=== PATIENT | female | born 1975 | race Caucasian/White ===

== ENCOUNTER 2019-08-06 12:00 | Outpatient (CLI) | payer OTHER, SELFPAY | END 2019-08-06 12:01 | disposition home or self-care (01) | LOC: SLEEP 08-08 09:44 | PROVIDERS: Family Provider Family Medicine; Visit Provider Family Medicine | DX: G47.33 Obstructive sleep apnea (adult) (pediatric) (principal) | CPT/HCPCS: G0399 ==

== ENCOUNTER 2020-04-08 11:50 | Outpatient (CLI) | payer OTHER, SELFPAY ==
--- NOTE | 2020-04-08 11:54 | MM_ITS ---
WS: [id number] BILATERAL DIGITAL SCREENING MAMMOGRAPHY WITH CAD CLINICAL INFORMATION: SCREENING HISTORY: Screening mammogram. No current complaints. COMPARISON: TECHNIQUE: Bilateral CC and MLO views. FINDINGS: The breasts are composed of heterogeneous fibroglandular density tissue, which can limit the detectio n of small underlying mass lesions. No suspicious mass, asymmetry, calcifications, or architectural d istortion. No evidence of malignancy. MM/[place] [id number] IMPRESSION: BI-RADS: 1-Negative FOLLOW UP: 1 Year Follow-up Recommend return to annual screening mammography.
== END 2020-04-08 11:51 | disposition home or self-care (01) ==
LOC: RADSHAW 11:52
PROVIDERS: PCP Family Medicine; Visit Provider Family Medicine
DX: Z12.31 Encounter for screening mammogram for malignant neoplasm of breast (principal)
CPT/HCPCS: 77067

== ENCOUNTER 2021-05-17 13:09 | Outpatient (CLI) | payer OTHER, SELFPAY ==
--- NOTE | 2021-05-17 | XR_ITS ---
WS: [id number] XR foot LT min 3V* [id number] REASON FOR EXAM: Left foot pain FINDINGS: No fracture or focal bone lesion. Mild narrowing with subchondral sclerosis and small marginal osteophytes in the PIP and predominantly DIP joints of the toes. No significant hallux valgus deformity arthropathy. Normal sesamoid bones. Joint spaces in the hindfoot and midfoot are well preserved. Moderate anterior plantar and small posterior Achilles enthesophytes. XR/XR foot LT min 3V* [id number] IMPRESSION: Minimal osteoarthritis of the left foot.
== END 2021-05-17 13:10 | disposition home or self-care (01) ==
PROVIDERS: PCP Family Medicine; Visit Provider Family Medicine
DX: M79.672 Pain in left foot (principal)
CPT/HCPCS: 73630

== ENCOUNTER → 2022-06-29 10:24 | Outpatient (BNVA) | payer OTHER, SELFPAY | PROVIDERS: PCP Family Medicine; Visit Provider Nurse Practitioner | DX: J02.9 Acute pharyngitis, unspecified (principal) | CPT/HCPCS: 87071; 87880 ==

== ENCOUNTER → 2022-07-11 09:05 | Outpatient (BNVA) | payer OTHER, SELFPAY | PROVIDERS: PCP Family Medicine; Visit Provider Family Medicine | DX: K76.0 Fatty (change of) liver, not elsewhere classified (principal); Z13.6 Encounter for screening for cardiovascular disorders | CPT/HCPCS: 80053; 80061; 83036; 85025 ==

== ENCOUNTER → 2022-12-26 09:59 | Outpatient (BNVA) | payer OTHER, SELFPAY | PROVIDERS: PCP Family Medicine; Visit Provider Registered Nurse Neonatal Intensive Care | DX: R05.9 Cough, unspecified (principal) | CPT/HCPCS: 87400; 87426 ==

== ENCOUNTER 2023-01-19 09:21 | Outpatient (CLI) | payer OTHER, SELFPAY ==
--- NOTE | 2023-01-19 09:26 | MM_ITS ---
WS: [id number] SCREENING DIGITAL BREAST TOMOSYNTHESIS MAMMOGRAM WITH CAD HISTORY: SCREENING COMPARISON: 04/08/2020 and 12/25/2018 Bilateral CC and MLO with tomosynthesis and synthetic mammography submitted. Computer aided detection analyzed. Breast composition: There are scattered areas of fibroglandular density. There is a new slightly lobu lated mass in the anterior LEFT breast, just medial and inferior to the nipple line. Probably near th e 5:00 axis. RIGHT breast is negative. IMPRESSION: MM/[place] [id number] BI-RADS: 0-Incomplete: Need additional imaging evaluation FOLLOW UP: Need Additional Imaging LEFT breast: Spot compression views (CC and MLO). True ML. Ultrasound to follow if abnormality persists.
== END 2023-01-19 09:22 | disposition home or self-care (01) ==
LOC: RAD 09:21
PROVIDERS: PCP Family Medicine; Visit Provider Family Medicine
DX: Z12.31 Encounter for screening mammogram for malignant neoplasm of breast (principal)
CPT/HCPCS: 77063; 77067

== ENCOUNTER 2023-02-26 10:40 | Outpatient (CLI) | payer OTHER, SELFPAY ==
--- NOTE | 2023-02-26 11:02 | MM_ITS ---
WS: [id number] ADDITIONAL VIEWS LEFT MAMMOGRAM with tomosynthesis. LEFT BREAST ULTRASOUND HISTORY: abnormal screening COMPARISON: 01/19/2023, 04/08/2020 LEFT MAMMOGRAM: Spot compression views and true ML with tomosynthesis and sympathetic mammography. Slightly lobulated 7 x 8 mm nodule persists in the anterior LEFT breast near 12:00. No additional abn ormality. LEFT BREAST ULTRASOUND 2-D and color Doppler imaging submitted. Hypoechoic mass is ovoid in shape at 6:00, 1 to 2 cm from the nipple. Mass measures 7 x 12 x 5 mm. Th ere is a fatty hilum. This appears to be a lymph node by ultrasound evaluation. IMPRESSION: MM/[place] [id number] BI-RADS: 3-Probably Benign FOLLOW UP: 6 Month Follow-up New mass 6:00 LEFT breast by ultrasound appears to be a lymph node. Recommend 6 -month follow-up by ultrasound. Ultrasound-guided biopsy can also be obtained i f requested.
== END 2023-02-26 10:41 | disposition home or self-care (01) ==
LOC: RAD 10:40
PROVIDERS: PCP Family Medicine; Visit Provider Family Medicine
DX: R92.8 Other abnormal and inconclusive findings on diagnostic imaging of breast (principal)
CPT/HCPCS: 76642; 77061; G0279

== ENCOUNTER 2023-03-21 10:29 | Outpatient (CLI) | payer OTHER, SELFPAY ==
--- NOTE | 2023-03-21 11:45 | US_ITS ---
WS: [id number] ULTRASOUND-GUIDED LEFT BREAST BIOPSY HISTORY: left breast mass COMPARISON: 02/26/2023 and 01/19/2023 Procedure, risks and complications are explained to the patient. Medications are reviewed. Consent is obtained. The mass in the LEFT breast is localized with ultrasound. Mass localizes to 6:00, 1 cm from the nippl e. Skin is cleansed with ChloraPrep and anesthetized with 1% buffered lidocaine. Small dermatome is m flex. Under sterile conditions mass is biopsied with a 14-gauge Achieve needle. Multiple core biopsies are performed. Material placed in formalin and sent to pathology for review. No complications encoun tered. Breast tissue marker (Bard ultrasound enhanced ribbon): Single. Patient left the radiology suite with no complications. Patient is instructed to return to [facility] or [facility] with any concerns. IMPRESSION: 1. Uncomplicated core needle biopsy LEFT breast mass at 6:00. US/[place] [id number] PATHOLOGY: Benign fibroadenoma. Fibrocystic changes with florid epithelial hype rplasia. No malignancy. RECOMMENDATION: Diagnostic LEFT mammogram follow-up and possible ultrasound in 6 months.
== END 2023-03-21 10:30 | disposition home or self-care (01) ==
LOC: RAD 10:29
PROVIDERS: PCP Family Medicine; Visit Provider Family Medicine
DX: D24.2 Benign neoplasm of left breast (principal); N60.32 Fibrosclerosis of left breast
CPT/HCPCS: 19083; 88305

== ENCOUNTER → 2024-02-19 09:02 | Outpatient (BNVA) | payer OTHER, SELFPAY | PROVIDERS: PCP Family Medicine | DX: R05.9 Cough, unspecified (principal); J02.9 Acute pharyngitis, unspecified | CPT/HCPCS: 87071; 87400; 87426; 87880 ==

== ENCOUNTER 2024-05-21 09:26 | Day surgery (SDC) | payer OTHER, SELFPAY ==
[2024-05-21] VITALS (11 sets, daily range): BP systolic 121–164; BP diastolic 83–110; PULSE 64–114; RESP 17–27; TEMP 36.1–36.4; O2SAT 92–98; BMI 32.0
[2024-05-21] MEDS: sodium chloride 0.9% 1,000 ML 30 ML IV (09:55)
--- NOTE | 2024-05-21 10:04 | W.PM.OPSUD ---
Surgery/Procedure H&P Update DATE OF PROCEDURE: May 21, 2024 DATE H&P PERFORMED: 05/12/24 H&P UPDATE INFORMATION: I have reviewed H&P completed within last 30 days, I have examined patient prior to procedure and No changes to prior documentation PLANNED PROCEDURE: Operation Date: 05/21/24 11:15 Proposed Procedures p Ventral Hernia Repair (Open) w/ Mesh 44919, K43.9(Not Applicable) - Víctor Palma MD
[2024-05-21 10:05] LABS: OR HCG Qualitative Urine Negative (Negative)
--- NOTE | 2024-05-21 10:05 | ANES.PREANE2 ---
Pre-Anesthetic Assessment Height/Weight: Height 5 ft 2 in Weight 175 lb Temp Pulse Resp BP Pulse Ox O2 Del Method 97.3 F L 64 17 164/110 98 Room Air 05/21/24 09:45 05/21/24 09:45 05/21/24 09:45 05/21/24 09:45 05/21/24 09:45 05/21/24 09:45 Preop Diagnosis: Ventral hernia Operation Date: 05/21/24 11:15 Proposed Procedures p Ventral Hernia Repair (Open) w/ Mesh 53757, K43.9(Not Applicable) - Víctor Palma MD Was Beta Tayler taken within 24 hours: N/A Was Clonidine taken within 24 hours: N/A Last intake: Intake Last Liquid Date 05/21/24 Last Liquid Time 00:00 Last Solid Date 05/20/24 Last Solid Time 19:30 Social Tobacco and No alcohol Exam alert, oriented x 3, clear to auscultation bilaterally and regular rate & rhythm Airway Submandibular: within normal limits Cervical ROM: within normal limits Mallampati: Class II Dentition: false Anesthetic Plan ASA status: 2 Anesthesia: General Other: No prior issues with anesthesia NPO since yesterday Current smoker Denies any cardiac issues METs greater than 4 Plan for general anesthesia Medications/Allergies Home Medications ?Medication ?Instructions ?Recorded ?Confirmed ?Last Taken ?Type No Known Home Medications 05/12/24 05/20/24 Unknown History Allergies Allergy/AdvReac Type Severity Reaction Status Date / Time No Known Allergies Allergy Verified 05/12/24 13:59 Current Medications Generic Name Dose Route Start Last Admin Trade Name Freq PRN Reason Stop Dose Admin Sodium Chloride 1,000 mls @ 30 mls/hr 05/21/24 09:45 05/21/24 09:55 Sodium Chloride 0.9% IV 05/22/24 09:44 30 mls/hr .Q24H VENANCIO Administration PFS Anesthesia Social History Smoking and tobacco/nicotine status: current every day tobacco/nicotine user Data Anesthesia Cardiac Studies: No Data to Display
[2024-05-21] MEDS: ceFAZolin 2,000 mg SDV 2000 MG IVP (10:32)
[2024-05-21] MEDS: BUPivacaine 0.25% INJ 10 mL INJECTION (11:11)
[2024-05-21] MEDS: lidocaine-epi 1% 20 mL INJ INJECTION (11:11)
--- NOTE | 2024-05-21 11:15 | P.OP_ITS ---
Operative Report Date of procedure: May 21, 2024 Pre-op diagnosis: Epigastric incisional hernia Post-op diagnosis: same Post-op findings: 0.5 cm fascial defect under the old epigastric port site Procedure done: Ventral hernia repair using #1 Duramesh Implants: Duramesh #1 Specimens removed/disposition: N/A Pathology: none sent Surgeon: Víctor Palma MD Damage Prevention Coordinator: N/A Anesthesia: General Estimated blood loss (mL): 10 Complications: N/A Findings: 0.5 cm fascial defect closed using #1 duramesh in an interrupted fashion. Condition: stable Disposition: same day Brief History: 48-year-old female who had a lap cholecystectomy and presented with an incisional hernia at the old epigastric port site. Marked hernia site in preop. Discussed risk and benefits the patient agrees to proceed with open ventral hernia repair with mesh. Procedure: After obtaining consent the patient was brought into the operating room. Patient was laid supine. SCDs were on and working. Preoperative antibiotics were administered. General anesthesia was induced. The abdomen was prepped and draped in the usual sterile fashion. A 4 cm incision was carried out in the epigastrium over the old port site. Electrocautery was used to dissect down to the fascial defect. A 4 cm bulge of the peritoneal fat was found to be bulging out of a 0.5 cm fascial defect. I was able to reduce the hernia sac back into the abdomen. I freshened up the edges of the fascial defect. Adequate hemostasis was achieved using electrocautery. The fascial defect was closed using #1 Duramesh in an interrupted fashion. Adeel's was closed using 3-0 Vicryl. The deep dermal layer was closed using also 3-0 Vicryl in a running fashion. Skin was closed using 4-0 Monocryl in a subcuticular fashion. Surgical glue was applied on top. The patient woke up from anesthesia without any complications and was transferred to PACU.
--- NOTE | 2024-05-21 12:30 | ANE.PACU2 ---
Inpatient post-anesthesia follow up: Airway intact: Yes Vital signs: Temperature 97.3 F Pulse Rate 97 Respiratory Rate 17 Blood Pressure 136/98 Pulse Oximetry 97 Oxygen Delivery Me thod Room Air Oxygen Flow Rate Fraction of Inspir ed Oxygen Hydration adequate: Yes Nausea and vomiting: No Pain level: 1 Mental status: Baseline
== END 2024-05-21 12:29 | disposition home or self-care (01) ==
PROVIDERS: PCP Family Medicine; Visit Provider Student in an Organized Health Care Education/Training Program
PROC: 0WQF0ZZ Repair Abdominal Wall, Open Approach (ICD-10-PCS; CPT 49591; principal; 2024-05-21 11:05)
DX: K43.2 Incisional hernia without obstruction or gangrene (principal); F17.200 Nicotine dependence, unspecified, uncomplicated
CPT/HCPCS: 49591; 81025; C1713; J0690; J1100; J1885; J2405; J2704; J3010; J3490; J7030; J9999

== ENCOUNTER → 2024-08-07 10:40 | Outpatient (BNVA) | payer OTHER, SELFPAY | PROVIDERS: PCP Family Medicine; Visit Provider Nurse Practitioner Women's Health | DX: N92.6 Irregular menstruation, unspecified (principal); Z01.419 Encounter for gynecological examination (general) (routine) without abnormal findings | CPT/HCPCS: 80053; 82306; 82670; 83001; 83002; 83525; 84146; 84402; 84403; 84443; 85025 ==

== ENCOUNTER → 2024-08-19 07:54 | Outpatient (BNVA) | payer OTHER, SELFPAY | PROVIDERS: PCP Family Medicine; Visit Provider Nurse Practitioner Women's Health | DX: N93.9 Abnormal uterine and vaginal bleeding, unspecified (principal); N84.0 Polyp of corpus uteri; N83.202 Unspecified ovarian cyst, left side | CPT/HCPCS: 76830 ==

== ENCOUNTER 2024-11-12 10:27 | Outpatient (CLI) | payer OTHER, SELFPAY ==
--- NOTE | 2024-11-12 10:30 | USR_ITS ---
PROCEDURE INFORMATION: Exam: US Pelvis, Complete, Non-Obstetric Exam date and time: 11/12/2024 10:36 AM Age: 49 years old Clinical indication: Condition or disease; Uterine condition; Polyp; Additional info: N84.0 - polyp of corpus uteri, please schedule patient for a transvaginal ultrasound [facility] TECHNIQUE: Imaging protocol: Transabdominal pelvic nonobstetric ultrasound. Complete exam. Real time ultrasound with image documentation. COMPARISON: US transvaginal [id number] 08/19/2024 8:07 AM FINDINGS: Limitations: This study is technically limited by significant bowel gas within the pelvis. Uterus: Uterus is unremarkable. Endometrial stripe measures 6 mm in thickness. The previously seen 7 mm polyp is not seen with certainty on the current exam. There is a 5 mm echogenic focus within the uterine body adjacent to the endometrial stripe which may represent a calcification. This appears new since the prior study. A nabothian cyst is seen at the cervix. Right ovary/adnexa: Not identified with certainty. Left ovary/adnexa: Normal in size with normal blood flow demonstrated. A subcentimeter follicle is noted. Previously seen larger ovarian cysts are no longer present. Intraperitoneal space: No significant free fluid. Urinary bladder: Limited images are unremarkable. US/US pelv w/transvag [id number] IMPRESSION: 1. Technically difficult study due to significant bowel gas within the pelvis. 2. Previously seen endometrial polyp is not identified with certainty. If clinically indicated, short-term follow-up may be helpful. 3. Echogenic 5 mm focus adjacent to the endometrial stripe which may represent a calcification. This is new since the prior study. 4. Right ovary not identified. 5. Unremarkable left ovary.
== END 2024-11-12 10:28 | disposition home or self-care (01) ==
LOC: RAD 10:28
PROVIDERS: PCP Family Medicine; Visit Provider Obstetrics & Gynecology
DX: N84.0 Polyp of corpus uteri (principal); Z90.721 Acquired absence of ovaries, unilateral
CPT/HCPCS: 76830; 76856